=== PATIENT | female | born 1960 | race Caucasian/White ===

== ENCOUNTER 2020-02-21 23:54 | Emergency (ER) | payer MEDICARE, OTHER ==
[~2020-02-21] VITALS: Ht 180.3 cm; Wt 92.5 kg
--- OUTSIDE RECORDS SUMMARY | 2020-02-21 23:56 | XMS REPORT ---
Author Author [facility] Address Unknown Phone Unavailable Care Team Providers Care Insurance Verification Clerk Name Role Phone Unavailable Unavailable Payers Payer Name Policy Type Policy Number Effective Date Expiration Date Problems This patient has no known problems. Allergies, Adverse Reactions, Alerts Allergy Name Allergy Type Status Severity Reaction(s) Onset Date Inactive Date Treating Clinician Comments No Known Allergies DA Active U 2018-09-27 00:00:00 Medications This patient has no known medications.
[2020-02-22] MEDS ORDERED: SODIUM CHLORIDE 0.9% 1000ML 1,000 ML IV STA (00:01)
[2020-02-22] MEDS ORDERED: ONDANSETRON HCL INJ 2MG/ML 2ML 2 MG/ML VIAL IV STA (00:01)
--- NOTE | 2020-02-22 00:22 | NUR ---
RETURNED FROM CT TO RM 1.
[2020-02-22] MEDS ORDERED: ONDANSETRON HCL INJ 2MG/ML 2ML 2 MG/ML VIAL ONE (00:32)
[2020-02-22] MEDS ORDERED: SODIUM CHLORIDE 0.9% 1000ML 1,000 ML ONE (00:33)
--- NOTE | 2020-02-22 00:35 | NUR ---
LIGHTS DIMMED. PT RESTING QUIETLY ON L-SIDE. REQUESTED L-SIDE RAIL BE RAISED;.
--- NOTE | 2020-02-22 01:08 | Diagnostic Imaging Report ---
EXAM: CT Abdomen and Pelvis WITHOUT contrast INDICATION: Vomiting, pain , nausea COMPARISON: None. TECHNIQUE: Abdomen and pelvis were scanned utilizing a multidetector helical scanner from the lung base to the pubic symphysis without administration of IV contrast. Absence of intravenous contrast decreases sensitivity for detection of focal lesions and vascular pathology. Coronal and sagittal reformations were obtained. Routine protocol was performed. IV CONTRAST: None ORAL CONTRAST: None COMPLICATIONS: None RADIATION DOSE: Total DLP: 1250 mGy*cm Estimated effective dose: (DLP x 0.015 x size factor) mSv CTDIvol has been reviewed. It is below the limits set by the Radiation Protocol Committee (RPC). Dose modulation, iterative reconstruction, and/or weight based adjustment of the mA/kV was utilized to reduce the radiation dose to as low as reasonably achievable. FINDINGS: LINES and TUBES: None. LOWER THORAX: Calcifications of the coronary arteries. Calcifications of the aortic valve. HEPATOBILIARY: The liver is enlarged and diffusely hypodense. Slightly nodular hepatic surface contour. No focal hepatic lesions. No biliary ductal dilation. GALLBLADDER: There are cholecystectomy clips. SPLEEN: Mild splenomegaly, measures up to 15 cm.. PANCREAS: No focal masses or ductal dilatation. ADRENALS: No right adrenal nodules. small benign fat-containing left adrenal adenoma. KIDNEYS/URETERS: No hydronephrosis. No cystic or solid mass lesions. No stones. GI TRACT: Moderate colonic stool burden. No abnormal distention, wall thickening, or evidence of bowel obstruction. Appendix is not clearly identified. There is however no fat stranding or adenopathy in the right lower quadrant to suggest appendicitis. PELVIC ORGANS/BLADDER: Hysterectomy. No adnexal masses. Urinary bladder under distended otherwise grossly unremarkable. LYMPH NODES: No lymphadenopathy. VESSELS: Scattered mild arterial vascular calcifications. PERITONEUM / RETROPERITONEUM: No free air or fluid. BONES: Degenerative changes in the spine. L4, L5 laminectomies with posterior fixation hardware which appears intact.. SOFT TISSUES: Unremarkable. IMPRESSION: 1. Moderate colonic stool burden. Correlate for constipation. 2. Early findings which can be seen with cirrhosis. There is also hepatosplenomegaly and hepatic steatosis. 3. Triple vessel coronary artery calcific atherosclerosis and aortic valve calcific disease. Signed by: Kali Britton DO on 02/22/2020 1:05 AM
--- NOTE | 2020-02-22 01:22 | NUR ---
PT STILL UNABLE TO GIVE URINE SAMPLE AT THIS TIME
[2020-02-22] MEDS ORDERED: PROMETHAZINE HC25 M1 PO (01:31)
[2020-02-22] MEDS ORDERED: PREVACID15 M1 PO (01:33)
--- NOTE | 2020-02-22 01:44 | NUR ---
PER CANCEL URINALISIS
[2020-02-22 01:55] VITALS: BP 165/93
== END 2020-02-22 01:53 | disposition home or self-care (01) ==
LOC: FSED 23:54
DX: R10.13 Epigastric pain (principal); R11.2 Nausea with vomiting, unspecified
CPT/HCPCS: 74176; 80053; 81003; 85025; 96374; 99284; J2405; J7030

== ENCOUNTER 2021-12-04 22:05 | Emergency (ER) | payer MEDICARE, OTHER ==
[~2021-12-04] VITALS: Ht 180.3 cm; Wt 92.5 kg
[~2021-12-04 22:05] MED LIST: PREVACID15 M1 PO; PROMETHAZINE HC25 M1 PO
[2021-12-04] MEDS ORDERED: MIRAPEX1 MG PO (22:19)
[2021-12-04 22:25] VITALS: BP 160/84
[2021-12-04] MEDS ORDERED: KETOROLAC TROMETHAMINE 60 MG/2 ML VIAL IM ONE (22:30)
[2021-12-04] MEDS ORDERED: KETOROLAC TROMETHAMINE 60 MG/2 ML VIAL ONE (22:31)
== END 2021-12-04 22:25 | disposition home or self-care (01) ==
LOC: FSED 22:15
DX: G25.81 Restless legs syndrome (principal); I10 Essential (primary) hypertension; J44.9 Chronic obstructive pulmonary disease, unspecified; Z91.040 Latex allergy status; Z79.899 Other long term (current) drug therapy
CPT/HCPCS: 96372; 99282; J1885